=== PATIENT | female | born 1950 | race Caucasian/White ===

== ENCOUNTER 2016-11-10 15:13 | Observation (INO) | payer OTHER ==
[~2016-11-10] VITALS: Ht 160 cm; Wt 68.7 kg
[~2016-11-10 15:13] MED LIST: ADVAIR 250/501 DISK IH; ADVAIR HFA120 INHALA IH; ASPIR 8181 M1 PO; ASPIRIN81 M2 PO; ATIVAN0.5 MG PO; COLACE100 MG PO; DOXYCYCLINE HY100 M3 PO; Ecotrin PO; GLUCOPHAGE500 MG PO; JANUVIA25 M1 PO; KLONOPIN0.5 M1 PO; LIPITOR40 MG PO; LIPITOR80 MG PO; LOPRESSOR25 MG PO; NEXIUM40 MG PO; PLAVIX75 MG PO; PREDNISONE10 MG PO; PROVENTIL,2.5 MG/0.5 IH; Proventil,Ventolin H IH; SERTRALINE HCL25 MG PO; SERTRALINE HCL50 MG PO; SPIRIVA RESPIMAT4 GM IH; STOOL SOFTENER100 MG PO; THEO-24400 MG PO; TRAMADOL HCL50 MG PO; ULTRAM50 MG PO; VENTOLIN HFA18 GM IH; VITAMIN D2000 UNI1 PO; ZOLOFT50 MG PO; [UNRECOGNIZED DRUG - OTHER] IV
[2016-11-10 15:56] LABS: HEMATOCRIT 44.6 % (36.0-46.0); MCH 30.9 PG (29.0-34.0); MCV 93.9 FL (83-99); MEAN PLAT.VOLUME 9.6 uM^3 (9.5-12.4); PLATELET COUNT 226 K/uL (156-360); RBC DIS.WIDTH-CV 12.7 % (11.8-14.6); RBC DIS.WIDTH-SD 44.1 % (39-53); RED BLOOD COUNT 4.75 M/uL (3.80-5.20)
[2016-11-10 16:08] LABS: CHLORIDE 108 mEq/L (99-109); POTASSIUM 4.4 mEq/L (3.7-5.4); SODIUM 142 mEq/L (136-147)
[2016-11-10 16:10] LABS: GLUCOSE 114 mg/dL (70-99)
[2016-11-10 16:11] LABS: ANION GAP 9 MEQ/L (2-14)
[2016-11-10 16:14] LABS: GFR ESTIMATE (CALCULATED) 53 mL/min/
[2016-11-10 16:15] LABS: UREA NITROGEN (BUN) 13 mg/dL (9-23)
[2016-11-10 16:18] LABS: TROP-I INTERPRETATION NEGATIVE; TROPONIN-I < 0.01 ng/mL (0.0-0.30)
[2016-11-10] MEDS ORDERED: LITE COAT ASPI325 M1 PO (17:40)
[2016-11-10] MEDS ORDERED: SILVADENE20 GM TP (17:40)
[2016-11-10] MEDS ORDERED: ALEVE220 MG PO (17:41)
[2016-11-10 18:12] LABS: TOTAL BILIRUBIN 0.2 mg/dL (0.0-1.0)
[2016-11-10 18:13] LABS: ALKALINE PHOSPHATASE 85 IU/L (3-129)
[2016-11-10 18:15] LABS: DIRECT BILIRUBIN 0.1 mg/dL (0.0-0.3)
[2016-11-10 18:15] LABS: TROP-I INTERPRETATION NEGATIVE; TROPONIN-I < 0.01 ng/mL (0.0-0.30)
[2016-11-10 18:16] LABS: LIPASE 25 U/L (1.0-51.0)
[2016-11-10 20:20] VITALS: BP 152/67
[2016-11-10 23:43] LABS: TROP-I INTERPRETATION NEGATIVE; TROPONIN-I < 0.01 ng/mL (0.0-0.30)
[2016-11-11 00:23] VITALS: BP 112/56
[2016-11-11 03:52] VITALS: BP 143/58
[2016-11-11 07:36] LABS: TROP-I INTERPRETATION NEGATIVE; TROPONIN-I < 0.01 ng/mL (0.0-0.30)
[2016-11-11 07:59] VITALS: BP 126/58
[2016-11-11] MEDS ORDERED: NITROSTAT0.4 MG SL (10:30)
== END 2016-11-11 11:12 | disposition home or self-care (01) ==
LOC: EME 15:13 → 5WEST 19:05 → EDOF 19:05 → 5WEST 20:21
PROVIDERS: Family Medicine; Physician Assistant
DX: R55 Syncope and collapse (principal); R07.89 Other chest pain; R94.31 Abnormal electrocardiogram [ECG] [EKG]; I25.10 Atherosclerotic heart disease of native coronary artery without angina pectoris; I25.2 Old myocardial infarction; E11.9 Type 2 diabetes mellitus without complications; E78.5 Hyperlipidemia, unspecified; Z95.1 Presence of aortocoronary bypass graft; F17.210 Nicotine dependence, cigarettes, uncomplicated
CPT/HCPCS: 71020; 80048; 80076; 83690; 83880; 84484; 85027; 93005; 94640; 99202; 99281; 99284; G0378

== ENCOUNTER 2016-11-29 04:38 | Observation (INO) | payer OTHER ==
[~2016-11-29] VITALS: Ht 160 cm; Wt 68.5 kg
[~2016-11-29 04:38] MED LIST changes: +ALEVE220 MG PO; +LITE COAT ASPI325 M1 PO; +NITROSTAT0.4 MG SL; +SILVADENE20 GM TP
[2016-11-29 05:03] LABS: HEMATOCRIT 41.5 % (36.0-46.0); MCH 30.9 PG (29.0-34.0); MCHC 33.5 G/DL (30.0-36.0); MCV 92.2 FL (83-99); MEAN PLAT.VOLUME 9.7 uM^3 (9.5-12.4); PLATELET COUNT 217 K/uL (156-360); RBC DIS.WIDTH-CV 12.7 % (11.8-14.6); WHITE BLOOD COUNT 10.7 K/uL (4.1-10.2)
[2016-11-29 05:11] LABS: CHLORIDE 109 mEq/L (99-109); POTASSIUM 4.5 mEq/L (3.7-5.4); SODIUM 140 mEq/L (136-147)
[2016-11-29 05:12] LABS: GLUCOSE 141 mg/dL (70-99)
[2016-11-29 05:14] LABS: ANION GAP 8 MEQ/L (2-14)
[2016-11-29 05:16] LABS: GFR ESTIMATE (CALCULATED) 59 mL/min/
[2016-11-29 05:17] LABS: UREA NITROGEN (BUN) 14 mg/dL (9-23)
[2016-11-29 05:25] LABS: TROP-I INTERPRETATION NEGATIVE; TROPONIN-I < 0.01 ng/mL (0.0-0.30)
[2016-11-29 06:24] VITALS: BP 98/52
[2016-11-29 06:25] LABS: HDL CHOLESTEROL 37 MG/DL (Desirable>=50); LDL CHOLESTEROL 128 mg/dL (Desirable<100); NON-HDL CHOLESTEROL 160 mg/dL (Desirable<160); SAMPLE HEMOLYSIS CHECK 0; SAMPLE ICTERIC CHECK 0; SAMPLE LIPEMIA CHECK 0; TOTAL CHOLESTEROL 197 mg/dL (Desirable<200); TRIGLYCERIDES 161 MG/DL (Normal: <150)
[2016-11-29 07:16] VITALS: BP 128/58
[2016-11-29 12:01] LABS: TROP-I INTERPRETATION NEGATIVE; TROPONIN-I < 0.01 ng/mL (0.0-0.30)
[2016-11-29 15:35] VITALS: BP 109/52
[2016-11-29 17:25] LABS: TROP-I INTERPRETATION NEGATIVE; TROPONIN-I < 0.01 ng/mL (0.0-0.30)
== END 2016-11-29 17:44 | disposition home or self-care (01) ==
LOC: EME → EDBD 04:38 → EME 04:38 → EDOF 05:22 → 5WEST 06:06
PROVIDERS: Emergency Medicine; Physician Assistant Medical
DX: R07.89 Other chest pain (principal); E88.09 Other disorders of plasma-protein metabolism, not elsewhere classified; I25.10 Atherosclerotic heart disease of native coronary artery without angina pectoris; I10 Essential (primary) hypertension; E78.5 Hyperlipidemia, unspecified; Z95.1 Presence of aortocoronary bypass graft; Z95.5 Presence of coronary angioplasty implant and graft; I25.2 Old myocardial infarction; J45.909 Unspecified asthma, uncomplicated; F17.210 Nicotine dependence, cigarettes, uncomplicated
CPT/HCPCS: 80048; 80061; 84484; 85027; 93005; 94640; 99281; 99284; G0378

== ENCOUNTER 2017-05-31 17:29 | Observation (INO) | payer OTHER ==
[~2017-05-31] VITALS: Ht 160 cm; Wt 65.3 kg
[~2017-05-31 17:29] MED LIST changes: +ADVAIR 500/501 DISK IH
[2017-05-31 19:16] LABS: MCH 31.4 PG (29.0-34.0); MCHC 34.4 G/DL (30.0-36.0); MCV 91.3 FL (83-99); MEAN PLAT.VOLUME 9.7 uM^3 (9.5-12.4); PLATELET COUNT 244 K/uL (156-360); RBC DIS.WIDTH-CV 13.3 % (11.8-14.6); RBC DIS.WIDTH-SD 45.3 % (39-53); RED BLOOD COUNT 4.93 M/uL (3.80-5.20); WHITE BLOOD COUNT 9.4 K/uL (4.1-10.2)
[2017-05-31 19:27] LABS: CHLORIDE 109 mEq/L (99-109); POTASSIUM 4.4 mEq/L (3.7-5.4); SODIUM 140 mEq/L (136-147)
[2017-05-31 19:31] LABS: ANION GAP 10 MEQ/L (2-14); GLUCOSE 86 mg/dL (70-99)
[2017-05-31 19:33] LABS: GFR ESTIMATE (CALCULATED) 59 mL/min/
[2017-05-31 19:34] LABS: UREA NITROGEN (BUN) 11 mg/dL (9-23)
[2017-05-31 19:36] LABS: PROTHROMBIN TIME 10.6 SEC (10.2-12.9)
[2017-05-31 19:37] LABS: TROP-I INTERPRETATION NEGATIVE; TROPONIN-I < 0.01 ng/mL (0.0-0.30)
[2017-05-31 19:39] LABS: PTT 31.6 SEC (25-37)
[2017-05-31 19:47] LABS: LIPASE 19 U/L (1.0-51.0)
[2017-05-31] MEDS ORDERED: THEO-24400 MG PO (21:15)
[2017-06-01 01:53] VITALS: BP 127/60
[2017-06-01 02:11] LABS: TOTAL BILIRUBIN 0.3 mg/dL (0.0-1.0)
[2017-06-01 02:12] LABS: ALKALINE PHOSPHATASE 84 IU/L (3-129)
[2017-06-01 02:14] LABS: DIRECT BILIRUBIN 0.1 mg/dL (0.0-0.3)
[2017-06-01 02:21] LABS: TROP-I INTERPRETATION NEGATIVE; TROPONIN-I 0.01 ng/mL (0.0-0.30)
[2017-06-01 02:39] LABS: HDL CHOLESTEROL 44 MG/DL (Desirable>=50); LDL CHOLESTEROL 139 mg/dL (Desirable<100); NON-HDL CHOLESTEROL 186 mg/dL (Desirable<160); TOTAL CHOLESTEROL 230 mg/dL (Desirable<200); TRIGLYCERIDES 236 MG/DL (Normal: <150)
[2017-06-01 03:36] VITALS: BP 125/63
[2017-06-01 07:47] LABS: Estimated Average Glucose 154 mg/dL (70-123)
[2017-06-01 08:36] VITALS: BP 127/62
[2017-06-01 09:04] LABS: TROP-I INTERPRETATION NEGATIVE; TROPONIN-I < 0.01 ng/mL (0.0-0.30)
== END 2017-06-01 10:00 | disposition home or self-care (01) ==
LOC: EME 17:29 → 5WEST 21:44 → EDOF 21:44 → ENRESERV 21:45 → EDOF 06-01 01:41 → 5WEST 06-01 01:43
PROVIDERS: Hospitalist; Physician Assistant
DX: R07.9 Chest pain, unspecified (principal); R20.0 Anesthesia of skin; I25.10 Atherosclerotic heart disease of native coronary artery without angina pectoris; Z95.1 Presence of aortocoronary bypass graft; I25.2 Old myocardial infarction; R94.31 Abnormal electrocardiogram [ECG] [EKG]; E11.9 Type 2 diabetes mellitus without complications; I10 Essential (primary) hypertension; E78.5 Hyperlipidemia, unspecified; J44.9 Chronic obstructive pulmonary disease, unspecified; Z91.19 Patient's noncompliance with other medical treatment and regimen; F17.200 Nicotine dependence, unspecified, uncomplicated; Z90.710 Acquired absence of both cervix and uterus; Z82.49 Family history of ischemic heart disease and other diseases of the circulatory system; Z85.41 Personal history of malignant neoplasm of cervix uteri; Z79.82 Long term (current) use of aspirin; Z79.84 Long term (current) use of oral hypoglycemic drugs; Z83.3 Family history of diabetes mellitus; Z88.0 Allergy status to penicillin; Z88.5 Allergy status to narcotic agent
CPT/HCPCS: 70450; 71020; 80048; 80061; 80076; 83036; 83690; 84484; 85027; 85610; 85730; 93005; 99281; 99285; G0378; J7030

== ENCOUNTER 2017-09-09 07:58 | Observation (INO) | payer OTHER ==
[~2017-09-09] VITALS: Ht 160 cm; Wt 63.9 kg
[2017-09-09 08:32] LABS: HEMATOCRIT 45.8 % (36.0-46.0); HEMOGLOBIN 15.4 G/DL (11.9-15.5); MCH 31.6 PG (29.0-34.0); MCHC 33.6 G/DL (30.0-36.0); PLATELET COUNT 214 K/uL (156-360); RBC DIS.WIDTH-CV 13.3 % (11.8-14.6); RBC DIS.WIDTH-SD 46.3 % (39-53); RED BLOOD COUNT 4.87 M/uL (3.80-5.20); WHITE BLOOD COUNT 10.2 K/uL (4.1-10.2)
[2017-09-09 08:41] LABS: CHLORIDE 105 mEq/L (99-109); POTASSIUM 4.7 mEq/L (3.7-5.4); SODIUM 137 mEq/L (136-147)
[2017-09-09 08:42] LABS: GLUCOSE 192 mg/dL (70-99)
[2017-09-09 08:46] LABS: CREATININE 0.9 mg/dL (0.6-1.3); GFR ESTIMATE (CALCULATED) > 59 mL/min/
[2017-09-09 08:47] LABS: UREA NITROGEN (BUN) 9 mg/dL (9-23)
[2017-09-09 08:52] LABS: TROP-I INTERPRETATION NEGATIVE; TROPONIN-I < 0.01 ng/mL (0.0-0.30)
[2017-09-09] MEDS ORDERED: THEOPHYLLINE400 MG PO (10:16)
[2017-09-09] MEDS ORDERED: METFORMIN HCL500 MG PO (10:16)
[2017-09-09] MEDS ORDERED: ATORVASTATIN CA80 MG PO (10:17)
[2017-09-09] MEDS ORDERED: NITROSTAT0.4 MG SL (11:24)
[2017-09-09 12:19] LABS: TROP-I INTERPRETATION NEGATIVE; TROPONIN-I < 0.01 ng/mL (0.0-0.30)
[2017-09-09 12:46] VITALS: BP 114/58
== END 2017-09-09 11:30 | disposition left against medical advice (07) ==
LOC: EME 07:58 → CANRESERV 10:06 → EDOF 10:06 → ENRESERV 10:06 → EDOF 11:30
PROVIDERS: Physician Assistant
DX: R07.9 Chest pain, unspecified (principal); I25.2 Old myocardial infarction; Z95.1 Presence of aortocoronary bypass graft; M54.9 Dorsalgia, unspecified; R11.0 Nausea; J45.909 Unspecified asthma, uncomplicated; F41.9 Anxiety disorder, unspecified; Z85.41 Personal history of malignant neoplasm of cervix uteri; Z79.82 Long term (current) use of aspirin; Z79.84 Long term (current) use of oral hypoglycemic drugs; F17.200 Nicotine dependence, unspecified, uncomplicated; Z88.0 Allergy status to penicillin; Z88.5 Allergy status to narcotic agent; Z88.8 Allergy status to other drugs, medicaments and biological substances
CPT/HCPCS: 71046; 80048; 84484; 85027; 93005; 99281; 99285; G0378